=== PATIENT | female | born 1965 | race Caucasian/White ===

== ENCOUNTER 2019-10-10 11:58 | Inpatient (IN) | payer MEDICAID, OTHER ==
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
[2019-10-10 14:31] LABS: Amphetamine Screen,Urine Not Detected (NotDetected); Barbiturate Screen,Urine Not Detected (NotDetected); Benzodiazepines Screen,Urine Not Detected (NotDetected); Cocaine Screen,Urine Not Detected (NotDetected); Methadone Screen, Urine Not Detected (NotDetected); Opiate Screen,Urine Not Detected (NotDetected); Oxycodone Screen, Urine Not Detected (NotDetected); Phencyclidine Screen,Urine Not Detected (NotDetected); Tricyclic Antidepressant,Urine Not Detected (NotDetected); Urn Cannabinoid Scrn Not Detected (NotDetected)
[2019-10-10] MEDS ORDERED: LORazepam 1 MG TAB PO PRN (18:46)
[2019-10-10] MEDS ORDERED: MAGNESIUM HYDROXIDE 2,400 MG/10 ML CUP PO PRN (18:46)
[2019-10-10] MEDS ORDERED: LORazepam 2 MG/ML INJ IM PRN (18:51)
[2019-10-10] MEDS: ACETAMINOPHEN TAB 325 MG TAB PO PRN (19:03)
[2019-10-10] MEDS: NAPROXEN 250 MG TAB PO PRN (23:25)
[2019-10-11] MEDS: ACETAMINOPHEN TAB 325 MG TAB PO PRN ×3 (02:32→19:42)
[2019-10-11 08:28] LABS: Basophils % (A) 0 %; Eosinophils # (A) 0.3 k/uL (0-0.7); Eosinophils % (A) 5 %; HCT 39.1 % (34.0-46.0); HGB 12.4 gm/dL (11.4-16.0); Lymphocytes # (A) 1.5 k/uL (1.0-4.8); Lymphocytes % (A) 23 %; MCH 26.7 pg (25.0-35.0); MCHC 31.6 g/dL (31.0-37.0); MCV 84.4 fL (80.0-100.0); Mean Platelet Volume 8.8; Monocytes # (A) 0.3 k/uL (0-1.0); Monocytes % (A) 5 %; Neutrophils # (A) 4.4 k/uL (1.3-7.7); Neutrophils % (A) 66 %; Platelet Count 213 k/uL (150-450); RBC 4.64 m/uL (3.80-5.40); RDW 14.5 % (11.5-15.5); WBC 6.8 k/uL (3.8-10.6)
[2019-10-11 08:57] LABS: ALT 38 U/L (4-34); AST 30 U/L (14-36); African American GFR (CKD) >90 (>60 ml/min/1.73 sqM); Albumin 3.9 g/dL (3.5-5.0); Alkaline Phosphatase 88 U/L (38-126); Anion Gap 9 mmol/L; Blood Urea Nitrogen 16 mg/dL (7-17); Calcium 9.2 mg/dL (8.4-10.2); Carbon Dioxide 28 mmol/L (22-30); Chloride 102 mmol/L (98-107); Cholesterol 155 mg/dL (<200); Glucose 83 mg/dL (74-99); HDL Cholesterol 51 mg/dL (40-60); LDL Cholesterol,Calculated 85 mg/dL (0-99); Non-African American GFR(CKD) >90 (>60 ml/min/1.73 sqM); Potassium 4.2 mmol/L (3.5-5.1); Sodium 139 mmol/L (137-145); Total Bilirubin 0.3 mg/dL (0.2-1.3); Total Protein 6.6 g/dL (6.3-8.2); Triglycerides 97 mg/dL (<150)
[2019-10-11] MEDS: NAPROXEN 250 MG TAB PO PRN (11:32)
[2019-10-11] MEDS: ZIPRASIDONE 20 MG VIAL IM PRN (11:35)
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
[2019-10-11 19:03] LABS: Hemoglobin A1C 5.5 % (4.0-6.0)
[2019-10-11] MEDS ORDERED: PALIPERIDONE 3 MG TAB.ER.24 PO SCH (21:00)
[2019-10-11] MEDS: BACITRACIN 500 UNIT/GM OINT 28.4 GM TUBE TOPICAL SCH (21:01)
[2019-10-12] MEDS: LORATADINE 10 MG TAB PO SCH (09:06)
[2019-10-12] MEDS: FUROSEMIDE 40 MG TAB PO SCH (09:06)
[2019-10-12] MEDS: BACITRACIN 500 UNIT/GM OINT 28.4 GM TUBE TOPICAL SCH ×2 (09:06→21:51)
[2019-10-12] MEDS: NAPROXEN 250 MG TAB PO PRN ×2 (09:07→21:52)
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
[2019-10-12] MEDS: ACETAMINOPHEN TAB 325 MG TAB PO PRN (12:49)
[2019-10-12] MEDS: PALIPERIDONE 3 MG TAB.ER.24 PO SCH (21:50)
[2019-10-13] MEDS: LORATADINE 10 MG TAB PO SCH (03:59)
[2019-10-13] MEDS: BACITRACIN 500 UNIT/GM OINT 28.4 GM TUBE TOPICAL SCH ×2 (09:52→23:12)
[2019-10-13] MEDS: FUROSEMIDE 40 MG TAB PO SCH (09:53)
[2019-10-13] MEDS: PALIPERIDONE 3 MG TAB.ER.24 PO SCH ×2 (09:56→20:53)
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
[2019-10-13] MEDS: NAPROXEN 250 MG TAB PO SCH ×2 (16:12→20:51)
[2019-10-13] MEDS: diphenhydrAMINE 25 MG CAP PO PRN (22:47)
[2019-10-14] MEDS: ACETAMINOPHEN TAB 325 MG TAB PO PRN ×2 (06:14→15:56)
[2019-10-14] MEDS: FUROSEMIDE 40 MG TAB PO SCH (08:57)
[2019-10-14] MEDS: LORATADINE 10 MG TAB PO SCH (08:57)
[2019-10-14] MEDS: BACITRACIN 500 UNIT/GM OINT 28.4 GM TUBE TOPICAL SCH ×2 (08:57→21:21)
[2019-10-14] MEDS: NAPROXEN 250 MG TAB PO SCH ×3 (08:58→21:17)
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
[2019-10-14] MEDS: PALIPERIDONE 3 MG TAB.ER.24 PO SCH (21:16)
[2019-10-14] MEDS: diphenhydrAMINE 25 MG CAP PO PRN (21:18)
[2019-10-15] MEDS: ACETAMINOPHEN TAB 325 MG TAB PO PRN (00:04)
[2019-10-15 00:08] LABS: Glucose,Whole Blood 95 mg/dL (75-99)
[2019-10-15 09:13] LABS: Glucose,Whole Blood 132 mg/dL (75-99)
[2019-10-15] MEDS: BACITRACIN 500 UNIT/GM OINT 28.4 GM TUBE TOPICAL SCH ×3 (09:22→21:30)
[2019-10-15] MEDS: AMOXIC-POT CLAV 875-125MG 1 EACH TAB PO SCH ×3 (09:23→21:29)
[2019-10-15] MEDS: BENZONATATE 100 MG CAP PO SCH ×4 (09:23→21:33)
[2019-10-15] MEDS: NAPROXEN 250 MG TAB PO SCH ×5 (09:24→21:43)
[2019-10-15] MEDS: FUROSEMIDE 40 MG TAB PO SCH ×2 (09:24→10:46)
[2019-10-15] MEDS: LORATADINE 10 MG TAB PO SCH ×3 (09:24→11:02)
[2019-10-15] MEDS: predniSONE 20 MG TAB PO SCH ×2 (09:24→10:46)
[2019-10-15 09:29] LABS: Basophils % (A) 1 %; Eosinophils # (A) 0.3 k/uL (0-0.7); Eosinophils % (A) 4 %; HCT 41.1 % (34.0-46.0); HGB 13.6 gm/dL (11.4-16.0); Hypochromasia Slight; Lymphocytes # (A) 1.9 k/uL (1.0-4.8); Lymphocytes % (A) 32 %; MCH 28.3 pg (25.0-35.0); MCV 85.8 fL (80.0-100.0); Monocytes # (A) 0.3 k/uL (0-1.0); Monocytes % (A) 4 %; Neutrophils # (A) 3.5 k/uL (1.3-7.7); Neutrophils % (A) 57 %; Platelet Count 198 k/uL (150-450); RDW 14.5 % (11.5-15.5); WBC 6.2 k/uL (3.8-10.6)
[2019-10-15 09:32] LABS: African American GFR (CKD) >90 (>60 ml/min/1.73 sqM); Anion Gap 8 mmol/L; Blood Urea Nitrogen 24 mg/dL (7-17); Calcium 9.7 mg/dL (8.4-10.2); Carbon Dioxide 32 mmol/L (22-30); Chloride 99 mmol/L (98-107); Glucose 125 mg/dL (74-99); Non-African American GFR(CKD) 83 (>60 ml/min/1.73 sqM); Potassium 4.3 mmol/L (3.5-5.1); Sodium 139 mmol/L (137-145)
--- NOTE | 2019-10-15 09:43 | XR ---
EXAMINATION TYPE: XR chest 2V DATE OF EXAM: 10/15/2019 HISTORY: cough . REFERENCE: NONE. FINDINGS: The lungs are clear. Pleural spaces are clear. The heart is not enlarged. IMPRESSION: NO ACTIVE INTRATHORACIC DISEASE.
--- NOTE | 2019-10-15 10:01 | P.PN ---
Progress Note - Text Progress Note Date: 10/15/19 Clinical Problems: Schizoaffective disorder bipolar type, rule out schizophrenia, rule out bipolar disorder current episode manic with psychotic features Interim history: I reviewed the medical record and interviewed the patient. She had multiple somatic complaints. She complained of cough, chest pain, shortness of breath, increase papilledema. She requested a medical evaluation. Medicine evaluate her and recommended a COVID testing and the chest x-ray. WBC from this morning was 6.2 She again refused paliperidone 6 mg yesterday evening. Mental status exam: She presented as an angry, irritable and verbose 54-year-old female with short cropped hair and glasses. She made eye contact and appeared to attend to the interview. She had angry facial expression. She showed no abnormality of psychomotor activity. She is not agitated or restless. Her speech was spontaneous, pressured with increased volume and rate. Her affect was irritable. She did not express suicidal ideation, wishes or homicidal ideation. She she feels hopeless and helpless regarding this hospitalization and her inability speak with her but denied feelings of worthlessness. She described paranoid ideation and a fixed paranoid delusional place. Her thinking was concrete and associations were not fully organized. She denied hallucinations and did not appear to responding to internal stimuli. Assessment: She Remains irritable and hyperverbal. Current concerns are medical related. Plan: Continue inpatient treatment. Completed the second clinical certificate and proceeded with involuntary hospitalization. Continue safety precautions. Continue Invega 6 mg at bedtime. Consider a mood stabilizer such as Depakote, Tegretol, lithium or Lamictal. Encourage participation in therapeutic groups and activities. Evaluate clinical status response to treatment daily basis.
[2019-10-15] MEDS: IPRATROPIUM-ALBUTEROL 3 ML NEB INHALATION SCH ×3 (10:30→21:30)
--- NOTE | 2019-10-15 12:03 | P.PN ---
Subjective Progress Note Date: 10/15/19 Principal diagnosis: Cough 54-year-old female complains of persistent nonproductive cough with shortness of breath. Past medical history of seasonal affect disorder bipolar type. Patient denies chest pain. Onset since being admitted to the psych unit. Vitals temperature 98.8 heart rate 80 respiratory rate 16 blood pressure 137/85 oxygen saturation 98% on room air Patient stated that she wanted to be checked for TB. Patient was informed that her cough will be evaluated with a chest x-ray and further treatment will be provided. Patient is nontoxic is sitting in the chair comfortably. No sign of acute respiratory distress. Objective - Vital Signs Vital signs: Vital Signs Temp 98.8 F 10/15/19 09:10 Pulse 80 10/15/19 10:30 Resp 16 10/15/19 09:10 BP 137/85 10/15/19 09:10 Pulse Ox 98 10/15/19 09:10 Intake & Output 10/14/19 10/15/19 10/15/19 18:59 06:59 18:59 Weight 122 kg - Exam General: [non toxic], [no distress], [appears at stated age] Derm: [warm], [dry] Head: [atraumatic], [normocephalic], [symmetric] Eyes: [EOMI], [no lid lag], [anicteric sclera] Mouth: [no lip lesion], [mucus membranes moist] Cardiovascular: [S1S2 reg], [no murmur], [positive posterior tibial pulse bilateral], Lungs: [diminisehed bs bilateral], [no rhonchi, no rales] , [no accessory muscle use] Abdominal: [soft], [ nontender to palpation], [no guarding], [no appreciable organomegaly] Ext: [no gross muscle atrophy], [no edema], [no contractures] Neuro: [ CN II-XI grossly intact], [no focal neuro deficits] Psych: [Alert], [oriented], [appropriate affect] - Labs CBC & Chem 7: 10/15/19 08:55 10/15/19 08:55 Labs: Abnormal Lab Results - Last 24 Hours (Table) 10/15/19 10/15/19 Range/Units 08:55 09:11 Carbon Dioxide 32 H (22-30) mmol/L BUN 24 H (7-17) mg/dL Glucose 125 H (74-99) mg/dL POC Glucose (mg/dL) 132 H (75-99) mg/dL Assessment and Plan Assessment: 1. Cough likely secondary to acute bronchitis Antibiotics steroids and breathing treatments ordered Chest x-ray was negative for acute process 2. We'll continue to monitor
[2019-10-15] MEDS: PALIPERIDONE 3 MG TAB.ER.24 PO SCH ×2 (21:30→21:51)
[2019-10-16] MEDS: ZIPRASIDONE 20 MG VIAL IM PRN (04:32)
[2019-10-16] MEDS: BENZONATATE 100 MG CAP PO SCH ×3 (09:57→21:17)
[2019-10-16] MEDS: FUROSEMIDE 40 MG TAB PO SCH (09:57)
[2019-10-16] MEDS: BACITRACIN 500 UNIT/GM OINT 28.4 GM TUBE TOPICAL SCH ×2 (09:57→21:18)
[2019-10-16] MEDS: predniSONE 20 MG TAB PO SCH (09:57)
[2019-10-16] MEDS: LORATADINE 10 MG TAB PO SCH (09:57)
[2019-10-16] MEDS: NAPROXEN 250 MG TAB PO SCH ×3 (09:57→21:18)
[2019-10-16] MEDS: AMOXIC-POT CLAV 875-125MG 1 EACH TAB PO SCH ×2 (09:57→21:14)
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
[2019-10-16] MEDS: BENZOCAINE/MENTHOL LOZENG 1 EACH LOZENGE MUCOUS MEM PRN ×2 (17:01→21:14)
[2019-10-16] MEDS ORDERED: diphenhydrAMINE 25 MG CAP PO SCH (21:00)
[2019-10-16] MEDS: PALIPERIDONE 3 MG TAB.ER.24 PO SCH (21:16)
[2019-10-16] MEDS: ACETAMINOPHEN TAB 325 MG TAB PO PRN (21:21)
[2019-10-17] MEDS: ACETAMINOPHEN TAB 325 MG TAB PO PRN ×2 (05:07→14:06)
[2019-10-17] MEDS: BACITRACIN 500 UNIT/GM OINT 28.4 GM TUBE TOPICAL SCH ×2 (09:37→21:09)
[2019-10-17] MEDS: AMOXIC-POT CLAV 875-125MG 1 EACH TAB PO SCH ×3 (09:37→22:17)
[2019-10-17] MEDS: predniSONE 20 MG TAB PO SCH (09:38)
[2019-10-17] MEDS: BENZONATATE 100 MG CAP PO SCH ×4 (09:38→22:16)
[2019-10-17] MEDS: FUROSEMIDE 40 MG TAB PO SCH (09:38)
[2019-10-17] MEDS: LORATADINE 10 MG TAB PO SCH (09:38)
[2019-10-17] MEDS: NAPROXEN 250 MG TAB PO SCH ×3 (09:41→21:10)
[2019-10-17] MEDS: BENZOCAINE/MENTHOL LOZENG 1 EACH LOZENGE MUCOUS MEM PRN ×2 (09:43→17:03)
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
[2019-10-17] MEDS: diphenhydrAMINE 50 MG CAP PO SCH ×2 (21:09→22:16)
[2019-10-17] MEDS: PALIPERIDONE 3 MG TAB.ER.24 PO SCH (21:10)
[2019-10-18] MEDS: ACETAMINOPHEN TAB 325 MG TAB PO PRN ×2 (04:39→16:32)
[2019-10-18] MEDS: BENZOCAINE/MENTHOL LOZENG 1 EACH LOZENGE MUCOUS MEM PRN ×2 (04:40→09:23)
[2019-10-18] MEDS: AMOXIC-POT CLAV 875-125MG 1 EACH TAB PO SCH (09:21)
[2019-10-18] MEDS: FUROSEMIDE 40 MG TAB PO SCH (09:22)
[2019-10-18] MEDS: BENZONATATE 100 MG CAP PO SCH ×3 (09:22→21:33)
[2019-10-18] MEDS: LORATADINE 10 MG TAB PO SCH (09:22)
[2019-10-18] MEDS: BACITRACIN 500 UNIT/GM OINT 28.4 GM TUBE TOPICAL SCH ×2 (09:22→21:42)
[2019-10-18] MEDS: NAPROXEN 250 MG TAB PO SCH (09:22)
[2019-10-18] MEDS: predniSONE 20 MG TAB PO SCH (09:23)
--- NOTE | 2019-10-18 10:04 | P.PN ---
Progress Note - Text Progress Note Date: 10/18/19 Interval History: Patient was seen sitting in on the group this morning and turned away from the rest of the group in the corner and was agreeable to speak to telegraphic typewriter operator in the office today. Patient continues to have poor insight and judgment. Patient was tearful at times today and had a loud tone of voice claiming that she is feeling upset. She spoke about "filing a complaint against a lot of people" and she feels that other people on the unit are trying to make "my life difficult". She displayed impulsivity and irritability and was fairly argumentative with telegraphic typewriter operator. She continues to refuse medications and when asked about it she states that "I'm not taking her medications I just want to go home". She spoke in depth about her roommate who needed to be transferred off the unit and also a new roommate that came and was "giving me how all night". She states that she had poor sleep last night and has fair appetite. She also complained of increasing urinary frequency and asked to get a urine analysis. At this time patient denies any suicidal or homical ideations, intent or plan. Patient denies any auditory, visual hallucinations. Patient denies any side effects from the medications. Mental Status Exam: General Appearance: Patient appears to be obese, stated age is alert, arg umentative and irritable today. Patient appears to have fair hygiene and grooming. Behavior: Patient is seated without any agitated behavior. Tearful and irritable. Speech: Patient's speech is fluent and nonpressured. Rambles Mood/Affect: Patient reports their mood is "upset", affect is congruent and tearful Suicidality/Homicidality: Patient denies having any homicidal ideation intent or plan. Denies any suicidal ideations intent or plan Perceptions: Patient denies any visual hallucinations and denies any auditory hallucinations Though content/process: Preoccupied with complaints of other patients and people on the unit. Patient rambles and is tangential. Memory and concentration: AOX3, grossly intact for the purposes of this session. Judgment and insight: poor/impulsive Assessment Psychosis unspecified Plan: -Patient continues to meet criteria for inpatient psychiatric admission for symptom stabilization and safety. Patient has signed adult voluntary form then soon after signed AMA. Papers were filed for court and patient did not defer on 10/16/2019 and will have a full court hearing on 10/25/2019. -Medications: Will continue with paliperidone by mouth to 3 mg twice a day for psychosis/mood stabilization. Patient is continuing to refuse this medication currently. Continue with Benadryl 50 mg daily at bedtime for ALLERGies/insomnia. -When necessary Geodon and Ativan for agitation/aggression. -NRT -not need this patient does not smoke. -SW on board for discharge planning. Encouraged the patient to participate in milieu and to participate in groups to work on coping skills. dump worker to contact for more collateral information. Currently waiting on court hearing date which is set for 10/25/2019.
[2019-10-18 12:55] LABS: Basophils % (A) 0 %; Eosinophils # (A) 0.1 k/uL (0-0.7); Eosinophils % (A) 1 %; HCT 42.4 % (34.0-46.0); HGB 13.5 gm/dL (11.4-16.0); Lymphocytes # (A) 1.3 k/uL (1.0-4.8); Lymphocytes % (A) 13 %; MCH 26.9 pg (25.0-35.0); MCHC 31.8 g/dL (31.0-37.0); MCV 84.8 fL (80.0-100.0); Mean Platelet Volume 8.5; Monocytes # (A) 0.3 k/uL (0-1.0); Monocytes % (A) 3 %; Neutrophils # (A) 8.1 k/uL (1.3-7.7); Neutrophils % (A) 81 %; Platelet Count 226 k/uL (150-450); RBC 5.01 m/uL (3.80-5.40); RDW 14.9 % (11.5-15.5); WBC 9.9 k/uL (3.8-10.6)
[2019-10-18 13:12] LABS: Albumin 4.6 g/dL (3.5-5.0); Calcium 9.6 mg/dL (8.4-10.2); Potassium 4.4 mmol/L (3.5-5.1); Total Bilirubin 0.4 mg/dL (0.2-1.3); Total Protein 7.5 g/dL (6.3-8.2)
[2019-10-18 14:31] LABS: Amylase 66 U/L (30-110)
[2019-10-18 14:39] LABS: Appearance,Urine Clear (Clear); Bilirubin,Urine Negative (Negative); Blood,Urine Trace (Negative); Color,Urine Yellow; Glucose,Urine (UA) Negative (Negative); Ketones,Urine Negative (Negative); Leukocyte Esterase,Urine Negative (Negative); Mucus,Urine Rare /hpf; Nitrite,Urine Negative (Negative); Protein,Urine Negative (Negative); RBC,Urine 1 /hpf (0-5); Specific Gravity,Urine 1.017 (1.001-1.035); Squamous Epithelial Cell,Urine 1 /hpf (0-4); Urobilinogen,Urine <2.0 mg/dL (<2.0); WBC,Urine 1 /hpf (0-5)
[2019-10-18] MEDS: ALBUTEROL HFA INHALER INHALATION PRN ×2 (14:55→21:43)
[2019-10-18] MEDS: diphenhydrAMINE 50 MG CAP PO SCH (21:21)
[2019-10-18] MEDS: PALIPERIDONE 3 MG TAB.ER.24 PO SCH (21:21)
--- NOTE | 2019-10-19 09:19 | P.PN ---
Progress Note - Text Progress Note Date: 10/19/19 Interval History: Patient was seen coming out of group this morning and was agreeable to speak to typewriter ribbon winder in the office today. Patient continues to have poor insight and judgment and continues to ramble and is tangential speaking about different issues on the unit. She continues to state that people have been loud and disrupting her sleep at nighttime. She continues to refuse her medications and states that she does not need them at all. She was fairly concerned about her medications and wanted typewriter ribbon winder to go over them in detail several times. She also was accusing one of the nurses last night of giving her the wrong medications and endorsed paranoia. She spoke of continue worried and anxiety about her old roommate who had to be transferred off of the floor due to a stroke. She states that she had poor sleep last night and has fair appetite. She claims that she did have some diarrhea yesterday in a bit today and asked typewriter ribbon winder again to look over her labs in detail and explained to her. At this time patient denies any suicidal or homical ideations, intent or plan. Patient denies any auditory, visual hallucinations. Patient denies any side effects from the medications. Mental Status Exam: General Appearance: Patient appears to be obese, stated age is alert, more directable today yet is irritable. Patient appears to have fair hygiene and grooming. Behavior: Patient is seated without any agitated behavior. Irritable. Speech: Patient's speech is fluent and nonpressured. Rambles Mood/Affect: Patient reports their mood is "the same", affect is congruent Suicidality/Homicidality: Patient denies having any homicidal ideation intent or plan. Denies any suicidal ideations intent or plan Perceptions: Patient denies any visual hallucinations and denies any auditory hallucinations Though content/process: Preoccupied with complaints of other patients and people on the unit. Patient rambles and is tangential. Endorses paranoia. Memory and concentration: AOX3, grossly intact for the purposes of this session. Judgment and insight: poor/impulsive Assessment Psychosis unspecified Plan: -Patient continues to meet criteria for inpatient psychiatric admission for symptom stabilization and safety. Patient has signed adult voluntary form then soon after signed AMA. Papers were filed for court and patient did not defer on 10/16/2019 and will have a full court hearing on 10/25/2019. -Medications: Will continue with paliperidone by mouth to 3 mg twice a day for psychosis/mood stabilization. Patient is continuing to refuse this medication currently. Continue with Benadryl 50 mg daily at bedtime for allergies/insomnia. -When necessary Geodon and Ativan for agitation/aggression. -NRT -not need this patient does not smoke. -SW on board for discharge planning. Encouraged the patient to participate in milieu and to participate in groups to work on coping skills. face worker to contact for more collateral information. Currently waiting on court hearing date which is set for 10/25/2019.
[2019-10-19] MEDS: FUROSEMIDE 40 MG TAB PO SCH (10:31)
[2019-10-19] MEDS: BENZONATATE 100 MG CAP PO SCH ×3 (10:31→20:32)
[2019-10-19] MEDS: BACITRACIN 500 UNIT/GM OINT 28.4 GM TUBE TOPICAL SCH ×2 (10:31→20:17)
[2019-10-19] MEDS: LORATADINE 10 MG TAB PO SCH (10:31)
[2019-10-19] MEDS: predniSONE 20 MG TAB PO SCH (10:32)
[2019-10-19] MEDS: ALBUTEROL HFA INHALER INHALATION PRN (10:32)
[2019-10-19] MEDS: ACETAMINOPHEN TAB 325 MG TAB PO PRN ×2 (15:03→20:15)
[2019-10-19] MEDS: diphenhydrAMINE 50 MG CAP PO SCH (20:15)
[2019-10-19] MEDS: PALIPERIDONE 3 MG TAB.ER.24 PO SCH (20:17)
[2019-10-19 23:18] LABS: Glucose,Whole Blood 147 mg/dL (75-99)
[2019-10-20] MEDS: predniSONE 20 MG TAB PO SCH (09:45)
[2019-10-20] MEDS: FUROSEMIDE 40 MG TAB PO SCH (09:45)
[2019-10-20] MEDS: LORATADINE 10 MG TAB PO SCH (09:45)
[2019-10-20] MEDS: ACETAMINOPHEN TAB 325 MG TAB PO PRN ×2 (09:45→15:59)
[2019-10-20] MEDS: BENZONATATE 100 MG CAP PO SCH ×3 (09:45→20:42)
[2019-10-20] MEDS: BACITRACIN 500 UNIT/GM OINT 28.4 GM TUBE TOPICAL SCH ×2 (09:45→20:41)
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
[2019-10-20] MEDS: diphenhydrAMINE 50 MG CAP PO SCH (20:41)
[2019-10-20] MEDS: PALIPERIDONE 3 MG TAB.ER.24 PO SCH (20:41)
[2019-10-21] MEDS: BENZONATATE 100 MG CAP PO SCH ×3 (09:51→22:23)
[2019-10-21] MEDS: BACITRACIN 500 UNIT/GM OINT 28.4 GM TUBE TOPICAL SCH ×2 (09:51→22:23)
[2019-10-21] MEDS: FUROSEMIDE 40 MG TAB PO SCH (09:51)
[2019-10-21] MEDS: predniSONE 20 MG TAB PO SCH (09:51)
[2019-10-21] MEDS: LORATADINE 10 MG TAB PO SCH (09:52)
--- NOTE | 2019-10-21 10:38 | P.PN ---
Progress Note - Text Progress Note Date: 10/21/19 Interval History: Patient was seen wandering the hallways this morning and was directable and ag reeable to street insurance underwriter in the office. She claims that her mood is "fine" however continues to be preoccupied with her legs and is somatically preoccupied. Patient again asked several questions about her medications and how they are helping her and is continuing to refuse her paliperidone. She states that she slept well last night and has been trying to go to some groups. Patient continues to have poor insight and judgment. She states that she had slept better last night and has a fair appetite. At this time patient denies any suicidal or homical ideations, intent or plan. Patient denies any auditory, visual hallucinations. Patient denies any side effects from the medications. Mental Status Exam: General Appearance: Patient appears to be obese, stated age is alert, more directable today. Patient appears to have fair hygiene and grooming. Behavior: Patient is seated without any agitated behavior. Last Irritable. Speech: Patient's speech is fluent and nonpressured. Rambles Mood/Affect: Patient reports their mood is "fine", affect is congruent Suicidality/Homicidality: Patient denies having any homicidal ideation intent or plan. Denies any suicidal ideations intent or plan Perceptions: Patient denies any visual hallucinations and denies any auditory hallucinations Though content/process: Somatically preoccupied. Patient rambles and is tangential. Logical. Memory and concentration: AOX3, grossly intact for the purposes of this session. Judgment and insight: poor/impulsive Assessment Psychosis unspecified Plan: -Patient continues to meet criteria for inpatient psychiatric admission for symptom stabilization and safety. Patient has signed adult voluntary form then soon after signed AMA. Papers were filed for court and patient did not defer on 10/16/2019 and will have a full court hearing on 10/25/2019. -Medications: Will continue with paliperidone by mouth to 3 mg twice a day for psychosis/mood stabilization. Patient is continuing to refuse this medication c urrently. Continue with Benadryl 50 mg daily at bedtime for allergies/insomnia. -When necessary Geodon and Ativan for agitation/aggression. -NRT -not need this patient does not smoke. -SW on board for discharge planning. Encouraged the patient to participate in milieu and to participate in groups to work on coping skills. Currently waiting on court hearing date which is set for 10/25/2019.
[2019-10-21 12:04] LABS: Glucose,Whole Blood 113 mg/dL (75-99)
[2019-10-21] MEDS: MAG HYDROX/AL HYDROX/SIMETH 30 ML CUP PO PRN ×2 (12:10→16:11)
[2019-10-21] MEDS: ACETAMINOPHEN TAB 325 MG TAB PO PRN ×2 (15:20→22:24)
[2019-10-21] MEDS: PALIPERIDONE 3 MG TAB.ER.24 PO SCH (22:23)
[2019-10-21] MEDS: diphenhydrAMINE 50 MG CAP PO SCH (22:23)
[2019-10-22] MEDS: ALBUTEROL HFA INHALER INHALATION PRN (02:16)
[2019-10-22] MEDS: MAG HYDROX/AL HYDROX/SIMETH 30 ML CUP PO PRN ×2 (07:11→15:02)
[2019-10-22] MEDS: BENZONATATE 100 MG CAP PO SCH ×3 (09:49→22:06)
[2019-10-22] MEDS: predniSONE 20 MG TAB PO SCH (09:49)
[2019-10-22] MEDS: BACITRACIN 500 UNIT/GM OINT 28.4 GM TUBE TOPICAL SCH ×2 (09:49→21:56)
[2019-10-22] MEDS: FUROSEMIDE 40 MG TAB PO SCH (09:50)
[2019-10-22] MEDS: LORATADINE 10 MG TAB PO SCH (09:50)
--- NOTE | 2019-10-22 11:34 | P.PN ---
Progress Note - Text Progress Note Date: 10/22/19 Interval History: Patient was seen taking part in activities group morning and was directable and agreeable to speak with procedure writer today. She claims that her mood is "alright" and continues to be preoccupied with her somatic symptoms. She states that she is now taking milk of magnesia which is her helping her "indigestion and upset stomach". She continues to speak about court and also her refusing her medication paliperidone. Her insight remains poor. She states that she slept well last night and has been trying to go to some groups. At this time patient denies any suicidal or homical ideations, intent or plan. Patient denies any auditory, visual hallucinations. Patient denies any side effects from the medications. Mental Status Exam: General Appearance: Patient appears to be obese, stated age is alert, more directable today. Patient appears to have fair hygiene and grooming. Behavior: Patient is seated without any agitated behavior. Less Irritable. Speech: Patient's speech is fluent and nonpressured. Rambles Mood/Affect: Patient reports their mood is "alright", affect is congruent Suicidality/Homicidality: Patient denies having any homicidal ideation intent or plan. Denies any suicidal ideations intent or plan Perceptions: Patient denies any visual hallucinations and denies any auditory hallucinations Though content/process: Somatically preoccupied. Patient rambles and is tangential. Logical. Memory and concentration: AOX3, grossly intact for the purposes of this session. Judgment and insight: poor, mildly improving Assessment Psychosis unspecified Plan: -Patient continues to meet criteria for inpatient psychiatric admission for symptom stabilization and safety. Patient has signed adult voluntary form then soon after signed AMA. Papers were filed for court and patient did not defer on 10/16/2019 and will have a full court hearing on 10/25/2019. -Medications: Will continue with paliperidone by mouth 6 mg nightly for psychosis/mood stabilization. Patient is continuing to refuse this medication currently. Continue with Benadryl 50 mg daily at bedtime for allergies/insomnia. -When necessary Geodon and Ativan for agitation/aggression. -NRT -not need this patient does not smoke. -SW on board for discharge planning. Encouraged the patient to participate in milieu and to participate in groups to work on coping skills. Currently waiting on court hearing date which is set for 10/25/2019.
[2019-10-22] MEDS: ACETAMINOPHEN TAB 325 MG TAB PO PRN (17:13)
[2019-10-22] MEDS: PALIPERIDONE 3 MG TAB.ER.24 PO SCH (21:57)
[2019-10-22] MEDS: diphenhydrAMINE 50 MG CAP PO SCH (21:59)
[2019-10-23] MEDS: FUROSEMIDE 40 MG TAB PO SCH (09:20)
[2019-10-23] MEDS: BENZONATATE 100 MG CAP PO SCH ×3 (09:20→21:12)
[2019-10-23] MEDS: BACITRACIN 500 UNIT/GM OINT 28.4 GM TUBE TOPICAL SCH ×2 (09:21→21:12)
[2019-10-23] MEDS: LORATADINE 10 MG TAB PO SCH (09:21)
--- NOTE | 2019-10-23 11:21 | P.PN ---
Progress Note - Text Progress Note Date: 10/23/19 Interval History: Patient was seen wandering the hallways this morning and was directable and ag reeable to speak with pattern chart writer today. She claims that her mood is "the same" and continues to be preoccupied with her somatic symptoms with pattern chart writer. She claims that there has been "chaos on the unit" and claims that she is having some abdominal discomfort and had diarrhea last night. She claims that today she feels that she is urinating too much and was requesting to have an ultrasound of her kidneys. She was also asking several questions about court and how the proceedings will go. She states that she wants to have her testify during court. She continues to have poor insight and judgment and has been refusing her medications. She states that she slept well last night and has been trying to go to some groups. Patient refused her Benadryl last night. At this time patient denies any suicidal or homical ideations, intent or plan. Patient denies any auditory, visual hallucinations. Patient denies any side effects from the medications. Mental Status Exam: General Appearance: Patient appears to be obese, stated age is alert, more directable. Patient appears to have fair hygiene and grooming. Behavior: Patient is seated without any agitated behavior. Less Irritable. Speech: Patient's speech is fluent and nonpressured. Rambles Mood/Affect: Patient reports their mood is "the same", affect is congruent Suicidality/Homicidality: Patient denies having any homicidal ideation intent or plan. Denies any suicidal ideations intent or plan Perceptions: Patient denies any visual hallucinations and denies any auditory hallucinations Though content/process: Somatically preoccupied. Patient rambles and is tangential. Logical. Memory and concentration: AOX3, grossly intact for the purposes of this session. Judgment and insight: poor, mildly improving Assessment: Psychosis unspecified Plan: -Patient continues to meet criteria for inpatient psychiatric admission for symptom stabilization and safety. Patient has signed adult voluntary form then soon after signed AMA. Papers were filed for court and patient did not defer on 10/16/2019 and will have a full court hearing on 10/25/2019. -Medications: Will continue with paliperidone by mouth 6 mg nightly for psychosis/mood stabilization. Patient is continuing to refuse this medication currently. Continue with Benadryl 50 mg daily at bedtime for allergies/insomnia. -Ordered urine analysis and basic metabolic panel for today -When necessary Geodon and Ativan for agitation/aggression. -NRT -not need this patient does not smoke. -SW on board for discharge planning. Encouraged the patient to participate in milieu and to participate in groups to work on coping skills. Currently waiting on court hearing date which is set for 10/25/2019.
[2019-10-23 12:02] LABS: Calcium 9.3 mg/dL (8.4-10.2); Potassium 4.2 mmol/L (3.5-5.1)
[2019-10-23] MEDS: ACETAMINOPHEN TAB 325 MG TAB PO PRN ×2 (12:26→21:54)
[2019-10-23 14:41] LABS: Appearance,Urine Clear (Clear); Bilirubin,Urine Negative (Negative); Blood,Urine Trace (Negative); Color,Urine Yellow; Glucose,Urine (UA) Negative (Negative); Ketones,Urine Negative (Negative); Leukocyte Esterase,Urine Negative (Negative); Mucus,Urine Rare /hpf; Nitrite,Urine Negative (Negative); PH, Urine 5.5 (5.0-8.0); Protein,Urine Negative (Negative); RBC,Urine 1 /hpf (0-5); Squamous Epithelial Cell,Urine <1 /hpf (0-4); Urobilinogen,Urine <2.0 mg/dL (<2.0); WBC,Urine 1 /hpf (0-5)
[2019-10-23] MEDS: PALIPERIDONE 3 MG TAB.ER.24 PO SCH (21:12)
[2019-10-23] MEDS: diphenhydrAMINE 50 MG CAP PO SCH (21:12)
[2019-10-23] MEDS: ALBUTEROL HFA INHALER INHALATION PRN (21:54)
[2019-10-24] MEDS: ACETAMINOPHEN TAB 325 MG TAB PO PRN (03:15)
[2019-10-24] MEDS: BENZONATATE 100 MG CAP PO SCH ×3 (09:05→21:17)
[2019-10-24] MEDS: BACITRACIN 500 UNIT/GM OINT 28.4 GM TUBE TOPICAL SCH ×2 (09:05→21:16)
[2019-10-24] MEDS: FUROSEMIDE 40 MG TAB PO SCH (09:06)
[2019-10-24] MEDS: LORATADINE 10 MG TAB PO SCH (09:06)
[2019-10-24] MEDS: FUROSEMIDE 20 MG TAB PO SCH (10:46)
--- NOTE | 2019-10-24 11:15 | P.PN ---
Progress Note - Text Progress Note Date: 10/24/19 Interval History: Patient was seen wandering the hallways this morning and was directable and ag reeable to speak with technical publications writer today. Patient claims that she was in group earlier today. She claims that her mood is "ok" this morning. She continues to be preoccupied with her somatic symptoms with technical publications writer and today was stating that she wants to have her Lasix decreased to 20 mg she feels that she is "going to the bathroom all the time". She continues to endorse that she wants her to be present for the court hearing tomorrow and technical publications writer discussed the proceedings on how logistically the court will take place. Patient continues to speak about the "freeon leak" at her house and also today spoke more about the "electrical circuits that can cause a fire" and also states that she wants a call in [employer] to fix her house. She continues to have poor insight and judgment and has been refusing her medications. She states that she slept well last night and has been trying to go to some groups. Patient refused her Benadryl last night. At this time patient denies any suicidal or homical ideations, intent or plan. Patient denies any auditory, visual hallucinations. Patient denies any side effects from the medications. Mental Status Exam: General Appearance: Patient appears to be obese, stated age is alert, directable. Patient appears to have fair hygiene and grooming. Behavior: Patient is seated without any agitated behavior. Irritable. Speech: Patient's speech is fluent and nonpressured. Rambles Mood/Affect: Patient reports their mood is "ok", affect is congruent Suicidality/Homicidality: Patient denies having any homicidal ideation intent or plan. Denies any suicidal ideations intent or plan Perceptions: Patient denies any visual hallucinations and denies any auditory hallucinations Though content/process: Somatically preoccupied. Patient rambles and is tangen tial. Logical. Continues to endorse delusion of freeon leak at her house. Memory and concentration: AOX3, grossly intact for the purposes of this session. Judgment and insight: poor, mildly improving Assessment: Psychosis unspecified Plan: -Patient continues to meet criteria for inpatient psychiatric admission for symptom stabilization and safety. Patient has signed adult voluntary form then soon after signed AMA. Papers were filed for court and patient did not defer on 10/16/2019 and will have a full court hearing on 10/25/2019. -Medications: Will continue with paliperidone by mouth 6 mg nightly for psychosis/mood stabilization. Patient is continuing to refuse this medication currently. Continue with Benadryl 50 mg daily at bedtime for allergies/insomnia. -Ordered urine analysis and basic metabolic panel for today -When necessary Geodon and Ativan for agitation/aggression. -NRT -not need this patient does not smoke. -SW on board for discharge planning. Encouraged the patient to participate in milieu and to participate in groups to work on coping skills. Currently waiting on court hearing date which is set for 10/25/2019.
[2019-10-24] MEDS: ALBUTEROL HFA INHALER INHALATION PRN (17:32)
[2019-10-24] MEDS: PALIPERIDONE 3 MG TAB.ER.24 PO SCH (21:17)
[2019-10-24] MEDS: diphenhydrAMINE 50 MG CAP PO SCH (22:05)
[2019-10-25] MEDS: LORATADINE 10 MG TAB PO SCH (09:46)
[2019-10-25] MEDS: FUROSEMIDE 20 MG TAB PO SCH (09:46)
[2019-10-25] MEDS: BENZONATATE 100 MG CAP PO SCH ×3 (09:46→21:21)
[2019-10-25] MEDS: BACITRACIN 500 UNIT/GM OINT 28.4 GM TUBE TOPICAL SCH ×2 (09:47→21:21)
--- NOTE | 2019-10-25 10:07 | P.PN ---
Progress Note - Text Progress Note Date: 10/25/19 Interval History: Patient was seen wandering the hallways this morning and was directable and ag reeable to speak with commercial loan underwriter today. Patient claims that she is feeling better today and was less preoccupied somatically. She states that she is urinating last on the 20 mg of Lasix and thanked commercial loan underwriter for changing it for her. She states that she was able to sleep better last night however continues compared to complain about noise on the unit. She continues to be preoccupied with court and talking about discharge. She continues to speak about the "freeon leak" at her house. She continues to have poor insight and judgment and has been refusing her medications. She claims that she has been trying to participate in groups. At this time patient denies any suicidal or homical ideations, intent or plan. Patient denies any auditory, visual hallucinations. Patient denies any side effects from the medications. Mental Status Exam: General Appearance: Patient appears to be obese, stated age is alert, directable. Patient appears to have fair hygiene and grooming. Behavior: Patient is seated without any agitated behavior. Irritable. Speech: Patient's speech is fluent and nonpressured. Rambles Mood/Affect: Patient reports their mood is "ok", affect is congruent Suicidality/Homicidality: Patient denies having any homicidal ideation intent or plan. Denies any suicidal ideations intent or plan Perceptions: Patient denies any visual hallucinations and denies any auditory hallucinations Though content/process: Somatically preoccupied. Patient rambles and is tangential. Logical. Continues to endorse delusion of freeon leak at her house. Memory and concentration: AOX3, grossly intact for the purposes of this session. Judgment and insight: poor, mildly improving Assessment: Psychosis unspecified Plan: -Patient continues to meet criteria for inpatient psychiatric admission for symptom stabilization and safety. Patient has signed adult voluntary form then soon after signed AMA. Papers were filed for court and patient did not defer on 10/16/2019 and will have a full court hearing on 10/25/2019. -Medications: Will continue with paliperidone by mouth 6 mg nightly for psychosis/mood stabilization. Patient is continuing to refuse this medication currently. Continue with Benadryl 50 mg daily at bedtime for allergies/insomnia. -When necessary Geodon and Ativan for agitation/aggression. -NRT -not need this patient does not smoke. -SW on board for discharge planning. Encouraged the patient to participate in milieu and to participate in groups to work on coping skills. Currently waiting on court hearing date which is set for 10/25/2019.
[2019-10-25 14:54] VITALS: BMI 42.3
[2019-10-25] MEDS: PALIPERIDONE 3 MG TAB.ER.24 PO SCH (21:21)
[2019-10-25] MEDS: diphenhydrAMINE 50 MG CAP PO SCH (21:21)
[2019-10-25] MEDS: ACETAMINOPHEN TAB 325 MG TAB PO PRN (21:23)
[2019-10-26] MEDS: FUROSEMIDE 20 MG TAB PO SCH (09:27)
[2019-10-26] MEDS: BACITRACIN 500 UNIT/GM OINT 28.4 GM TUBE TOPICAL SCH ×2 (09:27→21:24)
[2019-10-26] MEDS: LORATADINE 10 MG TAB PO SCH (09:27)
[2019-10-26] MEDS: ACETAMINOPHEN TAB 325 MG TAB PO PRN ×2 (09:28→15:10)
[2019-10-26] MEDS: BENZONATATE 100 MG CAP PO SCH (09:28)
--- NOTE | 2019-10-26 11:18 | P.PN ---
Progress Note - Text Progress Note Date: 10/26/19 Interval History: Patient was seen in her room this morning and was directable and agreeable to speak with teletypewriter operator today. Patient offered no overnight complaints and states that she has "very upset" with what happened in court yesterday. She claims that she feels that the unit is "trying to get money out of the system by keeping me here longer". She claims that she continues to refuse the medications as she does not have a "mental illness" and believes that she does not need to be on medications. Patient continues to be somatically preoccupied. She states that she was able to sleep better last night and states that she has been going to groups. She continues to be preoccupied with court and talking about discharge. She states that "I will have my day in court and you will see". She was fairly argumentative today and hostile with teletypewriter operator. At this time patient denies any suicidal or homical ideations, intent or plan. Patient denies any auditory, visual hallucinations. Patient denies any side effects from the medications. Mental Status Exam: General Appearance: Patient appears to be obese, stated age is alert, hostile/argumentative. Patient appears to have fair hygiene and grooming. Behavior: Patient is seated without any agitated behavior. Irritable. Speech: Patient's speech is fluent and nonpressured. Rambles Mood/Affect: Patient reports their mood is "fine", affect is congruent and irritable today. Suicidality/Homicidality: Patient denies having any homicidal ideation intent or plan. Denies any suicidal ideations intent or plan Perceptions: Patient denies any visual hallucinations and denies any auditory hallucinations Though content/process: Somatically preoccupied. Patient rambles and is tangential. Preoccupied with her court proceedings and being discharged home. Memory and concentration: AOX3, grossly intact for the purposes of this session. Judgment and insight: poor, mildly improving Assessment: Psychosis unspecified Plan: -Patient continues to meet criteria for inpatient psychiatric admission for symptom stabilization and safety. Patient has signed adult voluntary form then soon after signed AMA. Papers were filed for court and patient did not defer on 10/16/[address] hearing was adjourned and will have the next court hearing on 11/01/2019. -Medications: Will continue with paliperidone by mouth 6 mg nightly for psychosis/mood stabilization. Patient is continuing to refuse this medication currently. Continue with Benadryl 50 mg daily at bedtime for allergies/insomnia. -When necessary Geodon and Ativan for agitation/aggression. -NRT -not need this patient does not smoke. -SW on board for discharge planning. Encouraged the patient to participate in milieu and to participate in groups to work on coping skills. Currently waiting on court hearing date which is set for 11/01/2019.
[2019-10-26] MEDS: diphenhydrAMINE 50 MG CAP PO SCH (21:23)
[2019-10-26] MEDS: PALIPERIDONE 3 MG TAB.ER.24 PO SCH (21:24)
[2019-10-27] MEDS: ACETAMINOPHEN TAB 325 MG TAB PO PRN ×4 (00:10→22:29)
[2019-10-27] MEDS: MAG HYDROX/AL HYDROX/SIMETH 30 ML CUP PO PRN (00:12)
[2019-10-27 07:54] LABS: Glucose,Whole Blood 99 mg/dL (75-99)
[2019-10-27] MEDS: BACITRACIN 500 UNIT/GM OINT 28.4 GM TUBE TOPICAL SCH ×2 (09:37→22:29)
[2019-10-27] MEDS: LORATADINE 10 MG TAB PO SCH (09:39)
[2019-10-27] MEDS: FUROSEMIDE 20 MG TAB PO SCH (09:39)
--- NOTE | 2019-10-27 14:02 | P.PN ---
Progress Note - Text Progress Note Date: 10/27/19 Interval History: Patient was seen in the nurse's desk today and was directable and agreeable to speak with science writer in the office. Patient offered no overnight complaints and appeared to be very concrete and emotionless today. She states that she is doing "fine" and did not offer any complaints. She claims that she would like to have ibuprofen ordered for her as a when necessary for pain as an alternative to Tylenol. She claims that she continues to refuse the medications and believes that she does not need to be on medications. Patient continues to be somatically preoccupied. She states that she able to sleep well last night.. Patient was less argumentative with science writer today. At this time patient denies any suicidal or homical ideations, intent or plan. Patient denies any auditory, visual hallucinations. Patient denies any side effects from the medications. Mental Status Exam: General Appearance: Patient appears to be obese, stated age is alert, less hostile/argumentative. Patient appears to have fair hygiene and grooming. Behavior: Patient is seated without any agitated behavior. Less Irritable. Speech: Patient's speech is fluent and nonpressured. Rambles Mood/Affect: Patient reports their mood is "ok", affect is congruent and constricted. Suicidality/Homicidality: Patient denies having any homicidal ideation intent or plan. Denies any suicidal ideations intent or plan Perceptions: Patient denies any visual hallucinations and denies any auditory hallucinations Though content/process: Somatically preoccupied. Patient rambles and is tangential. Preoccupied with her court proceedings and being discharged home. Memory and concentration: AOX3, grossly intact for the purposes of this session. Judgment and insight: poor, mildly improving Assessment: Psychosis unspecified Plan: -Patient continues to meet criteria for inpatient psychiatric admission for sy mptom stabilization and safety. Patient has signed adult voluntary form then soon after signed AMA. Papers were filed for court and patient did not defer on 10/16/[address] hearing was adjourned and will have the next court hearing on 11/01/2019. -Medications: Will continue with paliperidone by mouth 6 mg nightly for psychosis/mood stabilization. Patient is continuing to refuse this medication currently. Continue with Benadryl 50 mg daily at bedtime for allergies/insomnia. -When necessary Geodon and Ativan for agitation/aggression. -NRT -not need this patient does not smoke. -SW on board for discharge planning. Encouraged the patient to participate in milieu and to participate in groups to work on coping skills. Currently waiting on court hearing date which is set for 11/01/2019.
[2019-10-27] MEDS: diphenhydrAMINE 50 MG CAP PO SCH (22:29)
[2019-10-27] MEDS: PALIPERIDONE 3 MG TAB.ER.24 PO SCH (22:29)
[2019-10-28] MEDS: LORATADINE 10 MG TAB PO SCH (09:36)
[2019-10-28] MEDS: BACITRACIN 500 UNIT/GM OINT 28.4 GM TUBE TOPICAL SCH ×2 (09:36→21:44)
[2019-10-28] MEDS: FUROSEMIDE 20 MG TAB PO SCH (09:37)
--- NOTE | 2019-10-28 14:14 | P.PN ---
Progress Note - Text Progress Note Date: 10/28/19 Interval history: Patient seen in cross coverage today. She reports that she has not been taking the Invega. She does have an upcoming court hearing on the . She describes that she did sleep well last night. She is eating well. She describes her mood is doing better today. She does make reference to wanting a different psychiatrist. She is encouraged to talk to her attending psychiatrist. Mental status exam: She is alert and cooperative with the interview. Her speech is fluent not rapid or pressured. Her thought processes are not showing any significant disorganization today. She denies any thoughts of harm to self or others. She denies any hallucinations. She does make reference to having concerns about her and not knowing if he is going to be alive, relays that she has had some contact with him. She does not display any significant agitation. Plan: We will continue to monitor patient's status. At this time she is refusing oral and Hermosilol. She has upcoming court hearing on the . We'll continue to see the patient in cross coverage through the weekend.
[2019-10-28] MEDS: ACETAMINOPHEN TAB 325 MG TAB PO PRN (16:15)
[2019-10-28] MEDS: PALIPERIDONE 3 MG TAB.ER.24 PO SCH (21:34)
[2019-10-28] MEDS: diphenhydrAMINE 50 MG CAP PO SCH (21:34)
[2019-10-29] MEDS: FUROSEMIDE 20 MG TAB PO SCH (09:27)
[2019-10-29] MEDS: BACITRACIN 500 UNIT/GM OINT 28.4 GM TUBE TOPICAL SCH ×2 (09:27→21:38)
[2019-10-29] MEDS: LORATADINE 10 MG TAB PO SCH (09:28)
--- NOTE | 2019-10-29 13:34 | P.PN ---
Progress Note - Text Progress Note Date: 10/29/19 Interval history: Patient is seen in cross coverage again today. She reports that she is not taking the invega. She verbalizes concerns about potential side effects. She wonders about medical records from her specialist doctor being transferred here. Mental status exam: She presents as alert and cooperative with the interview. She seems to describe her mood is doing fine. She does not verbalize any thoughts of harm to self or others. She does not display any agitation. She does not seem to be responding to internal stimuli. Her thought processes are organized. Plan: Patient will be maintained current treatment regimen. The she is currently not taking the invega. Continue to monitor her ongoing status. She has upcoming court hearing on October 31.
[2019-10-29] MEDS: diphenhydrAMINE 50 MG CAP PO SCH (21:38)
[2019-10-29] MEDS: PALIPERIDONE 3 MG TAB.ER.24 PO SCH (21:39)
[2019-10-30] MEDS: ALBUTEROL HFA INHALER INHALATION PRN ×2 (03:20→20:11)
[2019-10-30] MEDS: FUROSEMIDE 20 MG TAB PO SCH (09:43)
[2019-10-30] MEDS: BACITRACIN 500 UNIT/GM OINT 28.4 GM TUBE TOPICAL SCH ×2 (09:44→20:08)
[2019-10-30] MEDS: LORATADINE 10 MG TAB PO SCH (09:44)
--- NOTE | 2019-10-30 10:32 | P.PN ---
Progress Note - Text Progress Note Date: 10/30/19 Interval History: Patient was seen sitting in on group today and was directable and agreeable to speak with staff writer in the office. Patient today was fairly irritable and argumentative with staff writer. She continues to be somatically preoccupied and spoke about feeling dizzy this morning and also was preoccupied with her lab results. She states that her kidney tests are elevated and wants to have an ultrasound on her kidneys. Patient also continues to be preoccupied with the "freeon leak" at her house and spoke about the pipes and the refrigerator being old. She was preoccupied with the Freon killing them in the house and also that she could smell it. She states that she is doing "fine" when asked about her mood. She continues to have poor insight and judgment. She states that she able to sleep well last night. At this time patient denies any suicidal or homical ideations, intent or plan. Patient denies any auditory, visual hallucinations. Patient denies any side effects from the medications. Mental Status Exam: General Appearance: Patient appears to be obese, stated age is alert, was hostile/argumentative today. Patient appears to have fair hygiene and grooming. Behavior: Patient is seated without any agitated behavior. Irritable. Speech: Patient's speech is fluent and nonpressured. Rambles Mood/Affect: Patient reports their mood is "fine", affect is congruent and constricted. Suicidality/Homicidality: Patient denies having any homicidal ideation intent or plan. Denies any suicidal ideations intent or plan Perceptions: Patient denies any visual hallucinations and denies any auditory hallucinations Though content/process: Patient rambles and is tangential. Preoccupied with her court proceedings and was somatically preoccupied Memory and concentration: AOX3, grossly intact for the purposes of this session. Judgment and insight: poor, mildly improving Assessment: Psychosis unspecified Plan: -Patient continues to meet criteria for inpatient psychiatric admission for symptom stabilization and safety. Patient has signed adult voluntary form then soon after signed AMA. Papers were filed for court and patient did not defer on 10/16/[address] hearing was adjourned and will have the next court hearing on 11/01/2019. -Medications: Will continue with paliperidone by mouth 6 mg nightly for psychosis/mood stabilization. Patient is continuing to refuse this medication currently. Continue with Benadryl 50 mg daily at bedtime for allergies/insomnia. -When necessary Geodon and Ativan for agitation/aggression. -NRT -not need this patient does not smoke. -SW on board for discharge planning. Encouraged the patient to participate in milieu and to participate in groups to work on coping skills. Currently waiting on court hearing date which is set for 11/01/2019.
[2019-10-30] MEDS: ACETAMINOPHEN TAB 325 MG TAB PO PRN (17:38)
[2019-10-30] MEDS: MAG HYDROX/AL HYDROX/SIMETH 30 ML CUP PO PRN (17:39)
[2019-10-30] MEDS: PALIPERIDONE 3 MG TAB.ER.24 PO SCH (20:09)
[2019-10-30] MEDS: IBUPROFEN 600 MG TAB PO PRN (20:10)
[2019-10-30] MEDS: diphenhydrAMINE 50 MG CAP PO SCH (20:56)
[2019-10-31 05:12] LABS: Glucose,Whole Blood 96 mg/dL (75-99)
[2019-10-31] MEDS: BACITRACIN 500 UNIT/GM OINT 28.4 GM TUBE TOPICAL SCH (07:49)
[2019-10-31] MEDS: FUROSEMIDE 20 MG TAB PO SCH (07:49)
[2019-10-31] MEDS: LORATADINE 10 MG TAB PO SCH (07:50)
--- NOTE | 2019-10-31 10:24 | P.PN ---
Progress Note - Text Progress Note Date: 10/31/19 Interval History: Patient was seen sitting in on group this morning and was directable and agree able to speak with senior copywriter in the office. Patient today was again fairly irritable and argumentative with senior copywriter. She continues to be somatically preoccupied and spoke about various pain over her body today. She claims that she may have an egg ALLERGY and states that she would like to speak with an speech therapy director. Patient continues to be fairly demanding during the conversation and preoccupied with discharge as well. She continues to speak about having a kidney ultrasound. She states that she is doing "fine" when asked about her mood. She continues to have poor insight and judgment. She states that she able to sleep well last night. At this time patient denies any suicidal or homical ideations, intent or plan. Patient denies any auditory, visual hallucinations. Patient denies any side effects from the medications. Mental Status Exam: General Appearance: Patient appears to be obese, stated age is alert, was hostile/argumentative today. Patient appears to have fair hygiene and grooming. Behavior: Patient is seated without any agitated behavior. Irritable. Speech: Patient's speech is fluent and nonpressured. Rambles Mood/Affect: Patient reports their mood is "fine", affect is congruent and constricted. Suicidality/Homicidality: Patient denies having any homicidal ideation intent or plan. Denies any suicidal ideations intent or plan Perceptions: Patient denies any visual hallucinations and denies any auditory hallucinations Though content/process: Patient rambles and is tangential. Preoccupied with her court proceedings and was somatically preoccupied Memory and concentration: AOX3, grossly intact for the purposes of this session. Judgment and insight: poor, mildly improving Assessment: Psychosis unspecified Plan: -Patient continues to meet criteria for inpatient psychiatric admission for symptom stabilization and safety. Patient has signed adult voluntary form then soon after signed AMA. Papers were filed for court and patient did not defer on 10/16/[address] hearing was adjourned and will have the next court hearing on 11/01/2019. -Medications: Will continue with paliperidone by mouth 6 mg nightly for psychosis/mood stabilization. Patient is continuing to refuse this medication currently. Continue with Benadryl 50 mg daily at bedtime for allergies/insomnia. -When necessary Geodon and Ativan for agitation/aggression. -NRT -not need this patient does not smoke. -SW on board for discharge planning. Encouraged the patient to participate in milieu and to participate in groups to work on coping skills. Currently waiting on court hearing date which is set for 11/01/2019.
[2019-10-31] MEDS: PALIPERIDONE 3 MG TAB.ER.24 PO SCH (22:10)
[2019-10-31] MEDS: diphenhydrAMINE 50 MG CAP PO SCH (22:26)
[2019-10-31] MEDS: ACETAMINOPHEN TAB 325 MG TAB PO PRN (22:26)
[2019-11-01] MEDS: ACETAMINOPHEN TAB 325 MG TAB PO PRN ×3 (03:26→20:13)
[2019-11-01] MEDS: IBUPROFEN 600 MG TAB PO PRN ×2 (03:42→20:12)
[2019-11-01] MEDS: FUROSEMIDE 20 MG TAB PO SCH (09:04)
[2019-11-01] MEDS: LORATADINE 10 MG TAB PO SCH (09:04)
[2019-11-01] MEDS: ALBUTEROL HFA INHALER INHALATION PRN (09:51)
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
[2019-11-01] MEDS ORDERED: PALIPERIDONE 3 MG TAB.ER.24 PO SCH (21:00)
[2019-11-01] MEDS: diphenhydrAMINE 50 MG CAP PO SCH (21:19)
[2019-11-02] MEDS: ACETAMINOPHEN TAB 325 MG TAB PO PRN ×2 (03:57→17:38)
[2019-11-02] MEDS: FUROSEMIDE 20 MG TAB PO SCH (09:29)
[2019-11-02] MEDS: LORATADINE 10 MG TAB PO SCH (09:29)
[2019-11-02] MEDS ORDERED: flUPHENAZine 2.5 MG/ML (MDV) 10 ML VIAL IM PRN (14:05)
--- NOTE | 2019-11-02 14:11 | P.PN ---
Progress Note - Text Progress Note Date: 11/02/19 Interval History: Patient was seen wandering the hallways this morning and was directable and ag reeable to speak with copywriter in the office. Patient was fairly argumentative with copywriter today and spoke about the court hearing and that she has a court order. Patient was fixated on the court providing her with documentation and recommendations for treatment however was explained to patient that the treatment will be decided by copywriter and patient. She was fairly evasive and tangential and spoke about being a "equestrian" and states that her theatre arts professor told her that she needs to have her kidneys checked out because she is a "equestrian". Patient continues to have poor insight and judgment and is irritable with copywriter. She was fairly evasive and argumentative about treatment and was also somatically preoccupied. She continues to believe that she does not have a "mental illness". She states that she is doing "ok" when asked about her mood. She claims that she was able to sleep throughout the night. At this time patient denies any suicidal or homical ideations, intent or plan. Patient denies any auditory, visual hallucinations. Patient denies any side effects from the medications. Mental Status Exam: General Appearance: Patient appears to be obese, stated age is alert, was more argumentative and evasive today. Patient appears to have fair hygiene and grooming. Behavior: Patient is seated without any agitated behavior. Argumentative and Irritable. Speech: Patient's speech is fluent and nonpressured. Mood/Affect: Patient reports their mood is "fine", affect is congruent and irritable Suicidality/Homicidality: Patient denies having any homicidal ideation intent or plan. Denies any suicidal ideations intent or plan Perceptions: Patient denies any visual hallucinations and denies any auditory hallucinations Though content/process: Patient rambles and is tangential. Preoccupied with her court proceedings and was somatically preoccupied Memory and concentration: AOX3, grossly intact for the purposes of this session. Judgment and insight: poor Assessment: Psychosis unspecified Plan: -Patient continues to meet criteria for inpatient psychiatric admission for symptom stabilization and safety. Patient has signed adult voluntary form then soon after signed AMA. Papers were filed for court and patient did not defer on 10/16/[address] hearing was adjourned and had the court hearing on 11/01/2019 and was issued a court order on 11/02/2019. -Medications: Will discontinue paliperidone and patient opted to be started on Abilify by mouth. Will start 2.5 mg daily for psychosis/mood stabilization will plan to titrate up to 5 mg on Wednesday. Prolixin 3 mg IM when necessary if patient refuses by mouth Abilify. Continue with Benadryl 50 mg daily at bedtime for allergies/insomnia. -When necessary Geodon and Ativan for agitation/aggression. -NRT -not need this patient does not smoke. -SW on board for discharge planning. Encouraged the patient to participate in milieu and to participate in groups to work on coping skills. Currently waiting on court hearing date which is set for 11/01/2019.
[2019-11-02] MEDS ORDERED: ARIPiprazole 5 MG TAB PO SCH (14:15)
[2019-11-02] MEDS: ARIPiprazole 5 MG TAB PO SCH (14:20)
[2019-11-02] MEDS: IBUPROFEN 600 MG TAB PO PRN (17:37)
[2019-11-02] MEDS: MAG HYDROX/AL HYDROX/SIMETH 30 ML CUP PO PRN (20:20)
[2019-11-02] MEDS: diphenhydrAMINE 50 MG CAP PO SCH (20:21)
[2019-11-03] MEDS: ACETAMINOPHEN TAB 325 MG TAB PO PRN ×3 (06:11→21:32)
[2019-11-03] MEDS: LORATADINE 10 MG TAB PO SCH (07:46)
[2019-11-03] MEDS: FUROSEMIDE 20 MG TAB PO SCH (07:47)
[2019-11-03] MEDS: ARIPiprazole 5 MG TAB PO SCH (09:47)
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
[2019-11-03] MEDS: BISMUTH SUBSALICYLATE 4,192 MG/240 ML BOTTLE PO PRN (13:02)
[2019-11-03] MEDS: ALBUTEROL HFA INHALER INHALATION PRN (13:51)
[2019-11-03] MEDS: diphenhydrAMINE 50 MG CAP PO SCH (21:30)
[2019-11-04] MEDS: BISMUTH SUBSALICYLATE 4,192 MG/240 ML BOTTLE PO PRN ×2 (01:25→12:32)
[2019-11-04] MEDS: LORATADINE 10 MG TAB PO SCH (09:32)
[2019-11-04] MEDS: FUROSEMIDE 20 MG TAB PO SCH (09:32)
[2019-11-04] MEDS: ARIPiprazole 5 MG TAB PO SCH (09:33)
[2019-11-04] MEDS: ACETAMINOPHEN TAB 325 MG TAB PO PRN ×2 (11:43→15:14)
--- NOTE | 2019-11-04 11:56 | P.PN ---
Progress Note - Text Interval history: The patient's found in the hallway she follows me to an interview room. She is somatically preoccupied. She states she would like to see a neurologist and needs to see somebody for an axillary abscess. She was overly concerned about lab results we did review those. She's been started on Abilify 5 mg daily. Is admitted with a diagnosis of psychosis unspecified. The patient indicates that she slept well last night staff reported she slept 2 hours. She reports she is attending groups and appetite is stable. Mental status exam: The patient is an overweight female appearing her stated age. She is dressed in her own clothing. She has short hair she wears glasses. Eye contact is appropriate speech is fluent spontaneous nonpressured. She is somewhat somatically preoccupied this morning. She reports no suicidal or homicidal ideation intent or plan. She seems to lack insight into the reasons for her admission. She demonstrates no verbal or physical aggressiveness. She reports that she is experiencing no auditory or visual hallucinations. She likely is experiencing some delusional thoughts. She demonstrates no involuntary repetitive movements. Plan: The patient will continue on her current psychotropic medications. We will monitor her for safety she is encouraged to fully participate in the milieu. Vital signs reviewed. She requires continued psychiatric hospitalization.
[2019-11-04] MEDS: diphenhydrAMINE 50 MG CAP PO SCH (20:40)
[2019-11-05 03:18] VITALS: RESP 18
[2019-11-05] MEDS: ACETAMINOPHEN TAB 325 MG TAB PO PRN (03:18)
[2019-11-05] MEDS: ALBUTEROL HFA INHALER INHALATION PRN (04:44)
[2019-11-05] MEDS: FUROSEMIDE 20 MG TAB PO SCH (09:41)
[2019-11-05] MEDS: LORATADINE 10 MG TAB PO SCH (09:41)
[2019-11-05] MEDS: ARIPiprazole 5 MG TAB PO SCH (09:41)
[2019-11-05] MEDS: BISMUTH SUBSALICYLATE 4,192 MG/240 ML BOTTLE PO PRN ×2 (09:41→21:07)
--- NOTE | 2019-11-05 09:53 | P.PN ---
Progress Note - Text Interval history: The patient is found in the first front ventilator she follows me to an interview room. She states she would like to know what has to happen prior to her being discharged. We discussed general discharge goals while people are on the mental health unit. She states that she accomplished all those the first day she was here. She has been compliant with medication she continues to feel that she does not need the Abilify. She states it still hasn't issues but she is willing to continue it for now but hopes [facility] will change her "program" when she is discharged. She remained somatically preoccupied. Staff report no behavioral disturbances last 24 hours. Mental status exam: The patient is an overweight female appearing her stated age she has short hair she's wearing eyeglasses she is dressed in layers today, she has at least 2 shirts on and is wearing pajama bottoms with shorts over top. Eye contacts appropriate speech is fluent and spontaneous nonpressured. Thought process is mainly focused on being discharged. She is circumstantial with thought process. She seems to lack insight into the need for the Abilify and reason she was admitted to the mental health unit. She reports no auditory or visual hallucinations or specific delusions she may be underreporting symptoms. She reports no hopelessness thinking no suicidal ideation intent or plan. She demonstrates no verbal or physical aggressiveness. She demonstrates no involuntary repetitive movements Plan the patient will continue on her current psychotropic medication she is encouraged to maintain compliance with the medication. Encouraged to continue participating in the milieu. She expects a visit from her this evening. Vital signs reviewed they're within normal limits. She requires continued psychiatric hospitalization.
[2019-11-05] MEDS: diphenhydrAMINE 50 MG CAP PO SCH (21:06)
[2019-11-06] MEDS: ACETAMINOPHEN TAB 325 MG TAB PO PRN ×2 (00:24→09:47)
[2019-11-06 06:22] VITALS: BP 145/72; PULSE 84; TEMP 98.6
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
[2019-11-06] MEDS: FUROSEMIDE 20 MG TAB PO SCH (09:46)
[2019-11-06] MEDS: ARIPiprazole 5 MG TAB PO SCH (09:46)
[2019-11-06] MEDS: LORATADINE 10 MG TAB PO SCH (09:46)
== END 2019-11-06 16:33 | disposition home or self-care (01) | DRG 885 ==
LOC: EC 11:58 → 3MHU 18:15
PROVIDERS: ADMIT Psychiatry & Neurology Psychiatry; ATTEND Psychiatry & Neurology Psychiatry
DX: F29 Unspecified psychosis not due to a substance or known physiological condition (principal); H47.10 Unspecified papilledema; Z68.41 Body mass index [BMI] 40.0-44.9, adult; E66.9 Obesity, unspecified; F41.9 Anxiety disorder, unspecified; J20.9 Acute bronchitis, unspecified; I10 Essential (primary) hypertension; M19.90 Unspecified osteoarthritis, unspecified site; Z20.828 Contact with and (suspected) exposure to other viral communicable diseases; R35.0 Frequency of micturition; R45.87 Impulsiveness; R45.86 Emotional lability; G47.00 Insomnia, unspecified; Z71.3 Dietary counseling and surveillance; Z56.0 Unemployment, unspecified; Z85.42 Personal history of malignant neoplasm of other parts of uterus; Z90.710 Acquired absence of both cervix and uterus; Z90.49 Acquired absence of other specified parts of digestive tract; Z98.890 Other specified postprocedural states; Z88.5 Allergy status to narcotic agent; W22.8XXA Striking against or struck by other objects, initial encounter; Z81.8 Family history of other mental and behavioral disorders
CPT/HCPCS: 71046; 80048; 80053; 80061; 80306; 81001; 82075; 82150; 83036; 83690; 84443; 85025; 85379; 94640; 99285